=== PATIENT | female | born 1975 | race Two or more races ===

== ENCOUNTER 2020-06-05 13:58 | Outpatient (REF) | payer OTHER, SELFPAY | END 2020-06-05 13:59 | disposition home or self-care (01) | LOC: HO.LAB 13:58 | PROVIDERS: Visit Provider Internal Medicine | DX: Z20.828 Contact with and (suspected) exposure to other viral communicable diseases (principal) | CPT/HCPCS: C9803; U0003 ==

== ENCOUNTER 2023-04-26 11:25 | Emergency (ER) | payer OTHER, SELFPAY ==
--- NOTE | ~2023-04-26 | XR_ITS ---
EXAMINATION: XR LUMBOSACRAL SPINE CLINICAL INFORMATION: Fall and back pain. COMPARISON: None available. TECHNIQUE: Three views of the lumbosacral spine. FINDINGS: There is normal lumbar lordosis. The vertebral heights, alignment is normal. Loss of L1-L2 and L5-S1 disc heights is seen. There is mild ventral spondylosis L1-L2, L2-L3 and L3-L4 disc levels. No visible acute fracture, dislocation or subluxation seen. SI joints are symmetrical and normal. Mild L4-L5 facet joint hypertrophy and arthropathy is noted. XR/XR lumbar spine 2-3V IMPRESSION: Mild degenerative disc changes L1-L2 and L5-S1 disc levels with mild ventral spondylosis. No visible acute fracture, dislocation or lytic process seen.
[2023-04-26 11:56] VITALS: BP 140/60; PULSE 80; RESP 18; TEMP 36.7; O2SAT 98; BMI 41.6
--- NOTE | 2023-04-26 11:58 | ED_ITS ---
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 Patient reports about 3 days ago she did have a slip and fall landing on her buttocks. There was no head strike or loss of consciousness with this. She denies any associated weakness, numbness, tingling of the extremities. No bowel or bladder incontinence. No fevers or chills. No numbness in the groin. Patient does report some urinary frequency and dysuria. Related Data Previous Rx's Medication Instructions Recorded cyclobenzaprine 10 mg tablet 10 mg PO TID PRN muscle spasm #15 04/26/23 tabs lidocaine 5 % topical patch 1 patch topical DAILY #15 ea 04/26/23 (Lidoderm) naproxen 500 mg tablet 500 mg PO BID PRN pain #30 tabs 04/26/23 Allergies Allergy/AdvReac Type Severity Reaction Status Date / Time No Known Allergies Allergy Unverified 03/29/20 18:50 [No Known Allergies*] Review of Systems Review of Systems: Yes all other systems are reviewed and are negative Constitutional: Constitutional: Reports no additional constitutional complaints, Denies body ache(s), Denies chills, Denies fever(s), Denies headache(s) and Denies weakness Eyes: Eyes: Reports no additional eye complaints and Denies change in vision ENT: Reports system reviewed and no additional complaints, except as documented, Denies dizziness, Denies headache(s), Denies nasal congestion, Denies nasal discharge and Denies neck pain Cardiovascular: Cardiovascular: Reports no additional cardiovascular complaints, Denies chest pain, Denies leg edema and Denies dyspnea Respiratory: Respiratory: Reports no additional respiratory complaints, Denies cough and Denies dyspnea Gastrointestinal: Gastrointestinal: Reports no additional gastrointestinal complaints, Denies abdominal pain, Denies diarrhea, Denies nausea and Denies vomiting Genitourinary: Genitourinary: Reports no additional female genitourinary complaints and Denies urinary incontinence Musculoskeletal: Musculoskeletal: Reports no additional musculoskeletal complaints, Reports back pain, Denies arthralgias, Denies joint swelling, Denies neck pain, Denies numbness, Reports radiating pain into limb and Denies tingling Integumentary/Breasts: Skin/Breast: Reports system reviewed and no additional complaints, except as docu and Denies rash Neurologic: Reports system reviewed and no additional complaints, except as documented, Denies Abnormal speech present, Denies dizziness, Denies heada parul(s), Denies numbness, Denies tingling and Denies weakness PMFSH Past Medical History Attestation statement: The following information was validated with the patient. Source: old records reviewed and nursing notes reviewed Social History Social History Smoked in Last 30 Days: No Use of substances other than those prescribed or required for medical reasons: No Advance Directives: No Advance Directives Information Provided: Yes Patient : No Physical Exam ED Vital Signs: Vital Signs - 24 hr 04/26/23 11:56 Temperature 98.0 F Pulse Rate 80 Respiratory Rate 18 Blood Pressure 140/60 H Pulse Oximetry 98 Oxygen Delivery Method Room Air BMI result Body Mass Index 41.6 Const General: cooperative, healthy appearing, comfortable and no acute distress Orientation/consciousness: patient oriented x3 Limitations: no limitations HENMT Head: Yes normal to inspection Ears: hearing grossly normal bilaterally General nose exam: Normal external nose present Face and sinus: Yes normal facial exam Mouth: Normal oral and palatal mucosa present Throat: Yes posterior oropharynx normal Eyes General: appearance normal, both eyes and all related structures Pupils: Equal, round and reactive pupils present Neck Neck: Yes normal visual inspection Chest Chest palpation & inspection: normal inspection of the chest Resp Effort & Inspection: normal respiratory effort Auscultation: clear to auscultation bilaterally Cardio Rate: regular rate Rhythm: regular rhythm Peripheral pulses: Peripheral pulses 2+ throughout GI Inspection: Yes normal to inspection Palpation (GI): Soft to palpation and nontender Auscultation: normal bowel sounds Back/Spine/Pelvis Other: +TTP to lumbar lower spine with no step offs or deformities Thoracic/Lumbar Spine: thoracic and lumbar spine normal to inspection Skin General skin exam: no rashes or lesions noted Neuro General: patient oriented x3, no focal motor deficits and normal sensation to monofilament Cranial nerves: Yes Equal, round and reactive pupils present Cognition (Neuro): normal cognition Speech: No Abnormal speech present Gait exam (Neuro): Normal gait present Motor exam (neuro): 5/5 motor strength present throughout Sensory Exam: Normal double simultaneous stimulation for sensation Deep tendon reflexes (DTR's): Right patellar reflex intensity grade: 2+ and Left patellar reflex intensity grade: 2+ Extrem General: Yes normal to inspection Course Course Course Narrative: RME: 47 yold female presents to the ED for low back radating down left leg. Patient fell last week unto her back. patient denies any head trauma. Xrays ordered Reevaluation(s) Reevaluation #1: x-ray shows degenerative changes of the spine. UA is negative for infection. Likely lumbar radiculopathy. Patient will be discharged home with oral medications and strict return precautions. Reviewed worrisome signs and symptoms when to return to the emergency room. Comfortable plan for discharge home. Medications Administered Discontinued Medications Generic Name Dose Route Start Last Admin Trade Name Freq PRN Reason Stop Dose Admin Ketorolac Tromethamine 30 mg 04/26/23 13:44 04/26/23 14:02 Ketorolac Tromethamine 30 Mg/Ml Vial IM 04/26/23 13:45 30 mg ONCE ONE Administration Medical Decision Making Medical Decision Making [facility] Narrative: 47 yo female with history of DM, asthma Here with complaints of lower back pain which radiates to both thighs since last evening. Patient reports about 3 days ago she did have a slip and fall landing on her buttocks. There was no head strike or loss of consciousness with this. She denies any associated weakness, numbness, tingling of the extremities. No bowel or bladder incontinence. No fevers or chills. No numbness in the groin. Patient does report some urinary frequency and dysuria. patient has some mild tenderness the lumbar mid spine with no step-offs deformities. Normal neurological exam with no focal deficits. She is complaining of some dysuria and frequency so I will obtain and urinalysis. Due to complaints of fall will check lumbar x-ray will provide analgesia Differential Diagnosis Differential Diagnoses: The differential diagnosis associated with the presentation includes no neurological deficits or red flag symptoms, h/o immunocompromised state, IV drug abuse to suggest cord compression, cauda equina, epidural abscess, malignancy gradual onset so less likely AAA fracture, strain, lumbar radiculopathy, UTI, pyelonephritis, renal colic Admission/Observation Consideration of admission/observation: Escalation of care including admission/observation considered no neurological deficits or red flag symptoms to suggest need for emergent MRI, neurosurgery consultation and work triggered transfer to tertiary care center Lab Data MDM Lab Attestation statement: I reviewed the patient's lab results. UA shows no signs of infection Labs: Lab Results 04/26/23 Range/Units 13:54 Urine Color Yellow Urine Appearance Clear Urine pH 6.0 (5.0-9.0) Ur Specific [place] 1.025 (1.005-1.025) Urine Protein Negative (Neg-Trace) mg/dL Urine Glucose (UA) Negative (Negative) mg/dL Urine Ketones Negative (Negative) mg/dL Urine Blood Negative (Negative) Urine Nitrite Negative (Negative) Ur Leukocyte Esterase Negative (Negative) Independent Interpretation I performed an independent interpretation of an: Plain X-Ray Interpretation: I independently reviewed the x-ray and agree with radiology report Radiology Impression Discussion of test interpretation with radiology: I have reviewed the radiologist's reading. Radiologist Impression: [place] [id number] XRay Report Signed Patient: Kimberly Tyler MR#: [id number] : 1975 Acct:[id number] Age/Sex: 47 / F ADM Date: 04/26/23 Loc: HO.ED Attending Dr: Ordering Physician: Kenji Gates Date of Service: 04/26/23 Procedure(s): XR lumbar spine 2-3V Accession Number(s): [id number] cc: Kenji Gates~ EXAMINATION: XR LUMBOSACRAL SPINE CLINICAL INFORMATION: Fall and back pain. COMPARISON: None available. TECHNIQUE: Three views of the lumbosacral spine. FINDINGS: There is normal lumbar lordosis. The vertebral heights, alignment is normal. Loss of L1-L2 and L5-S1 disc heights is seen. There is mild ventral spondylosis L1-L2, L2-L3 and L3-L4 disc levels. No visible acute fracture, dislocation or subluxation seen. SI joints are symmetrical and normal. Mild L4-L5 facet joint hypertrophy and arthropathy is noted. XR/XR lumbar spine 2-3V IMPRESSION: Mild degenerative disc changes L1-L2 and L5-S1 disc levels with mild ventral spondylosis. No visible acute fracture, dislocation or lytic process seen. Tests considered The following testing was considered but not selected: no neurological deficits or red flag symptoms to suggest need for emergent MRI Prescription Management I considered prescription management with: Pain Medication Discharge Plan Discharge Clinical Impression: Lumbar radiculopathy Patient Disposition: Home, Self-Care Instructions: Lumbar Radiculopathy (ED) Additional Instructions: heat or ice Gentle stretching No heavy lifting or bending Take medications as prescribed. Follow-up with primary care doctor for any continued symptoms Return for any incontinence of urine or stool, fever, numbness in the groin calor o hielo Estiramiento suave Sin levantar objetos pesados ??ni agacharse [place] los medicamentos seg?n lo recetado. Seguimiento con el m?dico de atenci?n primaria si los s?ntomas persisten. Regrese por cualquier incontinencia de orina o heces, fiebre, entumecimiento en la dimas. Prescriptions: New cyclobenzaprine 10 mg tablet 10 mg PO TID PRN (Reason: muscle spasm) Qty: 15 0RF naproxen 500 mg tablet 500 mg PO BID PRN (Reason: pain) Qty: 30 0RF lidocaine [Lidoderm] 5 % adhesive patch,medicated 1 patch topical DAILY Qty: 15 0RF Rx Instructions: leave on most painful area for up to 12 hrs Referrals: Physician,Nonstaff [Physician] - 1 week Interventions: ED Discharge Assessment Last Done: 04/26/23 14:26 Discharge Date/Time: 04/26/23 14:27 Print Language: Dutch
[2023-04-26] MEDS: Ketorolac Tromethamine 30 MG/ML VIAL IM (14:02)
[2023-04-26 14:04] LABS: Appearance Urine Clear; Color Urine Yellow; Glucose Urine UA Negative (Negative); Leukocyte Esterase Urine Negative (Negative); Nitrite Urine Negative (Negative); Specific Gravity - Urine 1.025 (1.005-1.025); Urine Blood Negative (Negative); Urine Ketones Negative (Negative); Urine Protein Negative (Neg-Trace)
== END 2023-04-26 14:27 | disposition home or self-care (01) ==
PROVIDERS: Nurse Practitioner Family; Emergency Provider Emergency Medicine
DX: M54.16 Radiculopathy, lumbar region (principal); M54.50 Low back pain, unspecified; M79.652 Pain in left thigh; M79.651 Pain in right thigh; Z79.899 Other long term (current) drug therapy
CPT/HCPCS: 72100; 81003; 96372; 99284; J1885

== ENCOUNTER 2024-04-23 15:41 | Emergency (ER) | payer OTHER, SELFPAY ==
--- NOTE | ~2024-04-23 | XR_ITS ---
EXAMINATION: XR HAND/WRIST, LEFT CLINICAL INFORMATION: Fall on outstretched hand COMPARISON: None available. TECHNIQUE: PA, lateral, and oblique views of the left hand and wrist. FINDINGS: The bones and soft tissues are normal. No fracture. Alignment is anatomic. Joint spaces are maintained. No erosions or soft tissue calcifications. XR/XR hand wrist LT IMPRESSION: Normal radiographs of the hand and wrist. Electronically signed by: David Galindo MD 04/23/2024 04:36 PM EDT
[2024-04-23 15:42] VITALS: BP 147/81; PULSE 84; RESP 16; TEMP 36.4; O2SAT 98; BMI 39.5
--- NOTE | 2024-04-23 15:42 | ED.UPPEXIN ---
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 Patient states that she lost her balance while attempting to get something out of her car and fell onto her left side. She denies head strike or loss of consciousness, she is not anticoagulated. Took ibuprofen and used a topical cream at home prior to arrival. Denies any weakness, numbness, tingling. MD complaint: injury to: left and hand Onset (ago): hour(s) Other Extremity Injury: left: hand Other injuries: none Handedness: right Place: home Treatments prior to arrival: NSAIDS Related Data Previous Rx's ?Medication ?Instructions ?Recorded cyclobenzaprine 10 mg tablet 10 mg PO TID PRN muscle spasm #15 04/26/23 tabs lidocaine 5 % topical patch 1 patch topical DAILY #15 ea 04/26/23 (Lidoderm) naproxen 500 mg tablet 500 mg PO BID PRN pain #30 tabs 04/26/23 Allergies Allergy/AdvReac Type Severity Reaction Status Date / Time No Known Allergies Allergy Verified 04/23/24 15:46 [No Known Allergies*] Review of Systems Review of Systems: As per HPI. Yes all other systems are reviewed and are negative Constitutional: Constitutional: Reports as per HPI [facility] Social History Social History Advance Directives: No Advance Directives Information Provided: No Physical Exam Vital Signs: Vital Signs: Last Vital Signs Temp 97.5 F 04/23/24 15:42 Pulse 84 04/23/24 15:42 Resp 16 04/23/24 15:42 BP 147/81 H 04/23/24 15:42 Pulse Ox 98 04/23/24 15:42 O2 Del Method Room Air 04/23/24 15:42 BMI result Body Mass Index 39.5 Vital signs have been reviewed and appear to be correct. Blood pressure normal. Heart rate normal. Respiratory rate normal. Temperature normal. Oxygen saturation normal. Const: General: cooperative, healthy appearing and no acute distress Orientation/consciousness: oriented to person, oriented to place, oriented to time and patient oriented x3 Limitations: no limitations HEENT: Head: Yes normocephalic and Yes atraumatic Ears: external ears normal General nose exam: Normal external nose present Face and sinus: Yes face symmetric Mouth: oropharynx normal and moist mucous membranes Throat: Yes uvula midline Eyes: Pupils: Equal, round and reactive pupils present Neck: Neck: Yes normal visual inspection and Yes supple Resp: Effort & Inspection: normal respiratory effort and able to speak in complete sentences Auscultation: clear to auscultation bilaterally Cardio: Rate: regular rate Rhythm: regular rhythm Heart sounds: S1 normal heart sound present and S2 normal heart sound present GI: Palpation (GI): Soft to palpation and nontender Auscultation: normoactive bowel sounds : General: Yes no CVA tenderness Back/Spine/Pelvis: Back: no CVA tenderness Skin: General skin exam: elasticity normal and turgor normal Neuro: General: oriented to person, oriented to place, oriented to time, patient oriented x3, moves all extremities, no focal motor deficits and CN's II-XI intact bilaterally Cranial nerves: Yes Equal, round and reactive pupils present Cognition (Neuro): normal cognition Extrem: General: Yes full ROM, Yes no pedal edema and Yes no calf tenderness Left upper extremity: hand Details: normal capillary refill, neuromotor exam normal, neurosensory exam normal, tenderness Location: of the dorsal hand Location: over the 4th metacarpal and over the 5th metacarpal, normal ROM of fingers and swelling Location: of the dorsal hand Location: over the 4th digit and over the 5th metacarpal Psych: Mental Status: mental status grossly normal Affect: normal affect Thought process: Normal thought process present Course Course Course Narrative: This is a Rapid Medical Examination (RME) performed by Nery Mobley PA-C in triage. Full HPI, ROS, assessment and treatment plan per primary provider in the Main ED. 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 +noted swelling to ulnar aspect of dorsal left hand. 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 limited ROM to left wrist. Plan: xr Medical Decision Making Medical Decision Making MDM Narrative: Patient is a 48-year-old Ivorian speaking right-hand dominant female presenting to the emergency department with complaint of left hand pain after a trip and fall prior to arrival. On exam patient is awake, A+Ox3, VS WNL, afebrile, normal neurological exam without focal deficits, physical exam findings as above. Given reported symptoms and physical exam findings, initial differential includes left hand contusion, sprain, fracture. X-ray notable for no acute fracture. My interpretation is in agreement with the radiologist's interpretation. Results discussed with patient and all questions answered. Patient provided with Robert wrap and instruction in the emergency department. Advised patient to apply ice intermittently, use Tylenol and ibuprofen as needed for pain, follow-up with PCP. Return precautions discussed. Patient verbalized understanding of and agreement with plan. In-person radiator fitter was utilized for all interactions, assessments, and discussions. Differential Diagnosis Differential Diagnoses: The differential diagnosis associated with the presentation includes as per [facility] Independent Interpretation I performed an independent interpretation of an: Plain X-Ray Interpretation: No acute fracture of left hand/wrist. Radiology Impression Discussion of test interpretation with radiology: I have reviewed the radiologist's reading. Radiologist Impression: XR/XR hand wrist LT IMPRESSION: Normal radiographs of the hand and wrist. External Record Review External record reviewed: Inpatient record, Office record and Outpatient record Discharge Plan Discharge Clinical Impression: Contusion of left hand Patient Disposition: Home, Self-Care Instructions: How to Use an Elastic Bandage (ED), Contusion in Adults (ED), R.I.C.E. Treatment (ED) Additional Instructions: You were evaluated in the emergency department today for left hand pain. Your x-rays did not show evidence of any fractures. You were provided with an Robert wrap in the emergency department today, please use this as directed. We recommend that you apply ice to your hand for 10-15 minutes at a time several times daily, using caution not to apply directly to the skin. We also recommend alternating Tylenol and ibuprofen as needed for pain. Follow-up with your primary care provider. Return to the emergency department for worsening swelling, pain, change of color in your hand or any other concerning symptoms. Follow up with orthopedics for ongoing symptoms. Prescriptions: No Action cyclobenzaprine 10 mg tablet 10 mg PO TID PRN (Reason: muscle spasm) Qty: 15 0RF naproxen 500 mg tablet 500 mg PO BID PRN (Reason: pain) Qty: 30 0RF lidocaine [Lidoderm] 5 % adhesive patch,medicated 1 patch topical DAILY Qty: 15 0RF Rx Instructions: leave on most painful area for up to 12 hrs Referrals: [facility] Orth[facility] Surgeons [Provider Group] Print Language: Ivorian
[2024-04-23 18:01] VITALS: BP 147/81; PULSE 84; RESP 16; TEMP 36.4; O2SAT 98
[2024-04-23 18:12] VITALS: BP 143/90; PULSE 86; RESP 20; TEMP 36.8; O2SAT 98
== END 2024-04-23 18:43 | disposition home or self-care (01) ==
PROVIDERS: Emergency Provider Emergency Medicine
DX: S60.222A Contusion of left hand, initial encounter (principal); W18.49XA Other slipping, tripping and stumbling without falling, initial encounter; Y93.89 Activity, other specified; Y92.810 Car as the place of occurrence of the external cause; Y99.9 Unspecified external cause status
CPT/HCPCS: 73110; 73130; 99282; 99283

== ENCOUNTER 2024-05-17 10:11 | Outpatient (AMB) | payer OTHER, SELFPAY ==
--- NOTE | 2024-05-17 10:42 | A.OFFVIS_ITS ---
Intake Visit Reasons: ED f/u [employer] Contusion of left hand Intake Note: Kimberly is a 48 year old -- hand dominant female who presents today as a new patient for an emergency department follow up for a contusion of left hand s/p fall DOI: 04/23/24. Patient reports she lost her balance when trying get something out of her car, landing on her left side. Expresses pain with flexion, extension, and lifting. She has been wearing wrist brace provided by ED which does offer her mild relief. Tried the use of over the counter medications such as Tylenol and ibuprofen however she did not find relief. Allergies No Known Allergies [No Known Allergies*] Allergy (Verified 05/17/24 10:44) HPI HPI ED f/u [employer] Contusion of left hand: Details: Patient is a 48 YO F who presents for evaluation of contusion of left hand, date of injury 04/23/2024. On that date, the patient reports that she was attempting to get out of her car, when she fell forward and onto her left hand. Today, the patient reports that her pain has improved since date of injury, but she is still experiencing discomfort with flexion, extension, and other range of motion of the left wrist. patient was previously evaluated in the emergency department, where x-rays were taken revealing no fracture or acute bony abnormality. Patient was provided with a Velcro wrist splint at that time, which the patient states does give her mild to moderate relief. Patient reports no numbness or tingling of the left hand. No other acute complaints or concerns at this time. [facility] Social History (Updated 05/17/24 @ 10:45 by Sharona Tyler) Alcohol intake: never Patient Tobacco Use Status: Never used Tobacco Current occupational status: unemployed Current occupation: right hand dominant Physical Exam Extrem Other: Patient is alert, oriented, and in no acute distress. Neuro: Normal sensation of the tips of all digits of the left hand at this time Vascular: Cap refill brisk Pain: No tenderness to palpation about the left hand or wrist Patient does report significant discomfort with full active and passive flexion, extension, abduction, and adduction of the left wrist ROM: With encouragement, patient is able to make a closed fist and extend all digits of the left hand fully Patient is able to flex and extend the left wrist to approximately 60 degrees with both movements, but reports discomfort when doing lungs Skin: No lacerations or abrasions. General: No ecchymosis, erythema, or evidence of infection. Psych: Appears grossly normal Affect normal Attitude cooperative Results Reviewed Results Reviewed: X-rays obtained in the ED and independently reviewed by me, Osmany Smiley PA-C, demonstrate no fracture or acute bony abnormality Assessment & Plan Assessment & Plan (1) Contusion of left hand: Code(s): S60.222A - Contusion of left hand, initial encounter Category: Medical Plan 1. Contusion of the left hand and wrist Date of injury 04/23/2024 At this time, patient will be referred to occupational therapy for range of motion and strengthening of the left hand and wrist Patient is amenable to this plan Patient is also offered a new Velcro wrist splint to wear with daytime activities, but states that she feels the 1 she received in the emergency department is adequate Patient will follow-up as needed with any acute concerns Coding Level of Care Code New Pt Level 3 (95635) Diagnoses Contusion of left hand S60.222A
== END 2024-05-17 11:14 | disposition home or self-care (01) ==
LOC: HO.HOS 10:11
DX: S60.222A Contusion of left hand, initial encounter (principal)
CPT/HCPCS: 99203

== ENCOUNTER → 2024-05-17 10:11 | Outpatient (BNVA) | payer OTHER, SELFPAY | DX: S60.222A Contusion of left hand, initial encounter (principal); W01.0XXA Fall on same level from slipping, tripping and stumbling without subsequent striking against object, initial encounter; Y93.89 Activity, other specified; Y92.89 Other specified places as the place of occurrence of the external cause; Y99.9 Unspecified external cause status | CPT/HCPCS: 99202 ==